=== PATIENT | male | born 1980 | race African-American/Black ===

== ENCOUNTER 2017-03-27 20:30 | Emergency (ER) | payer MEDICAID, OTHER ==
[~2017-03-27] VITALS: Ht 177.8 cm; Wt 81.6 kg
[~2017-03-27 20:30] MED LIST: ALBU-136 IH
[2017-03-27 20:53] VITALS: BP 137/76
[2017-03-27] MEDS ORDERED: HYDROcodone/APAP 7.5/325 MG 1 TAB PO ONE (21:35)
[2017-03-27 22:20] VITALS: BP 127/68
--- NOTE | 2017-03-27 22:20 | NUR ---
Patient discharged with v/s stable. Written and verbal after care instructions given and explained. Patient alert, oriented and verbalized understanding of instructions. Ambulatory with steady gait. All questions addressed prior to discharge. ID band removed. Patient advised to follow up with PMD. Rx of Gentak opthalmic pascual and [place] given. Patient educated on indication of medication including possible reaction and side effects. Opportunity to ask questions provided and answered.
== END 2017-03-27 22:20 | disposition home or self-care (01) ==
LOC: MED 20:30
CPT/HCPCS: 99283

== ENCOUNTER 2017-07-27 10:32 | Emergency (ER) | payer OTHER ==
[~2017-07-27] VITALS: Ht 177.8 cm; Wt 72.7 kg
[2017-07-27 10:52] VITALS: BP 131/79
--- NOTE | 2017-07-27 11:22 | NUR ---
Patient ambulated to bed 11. RN evaluating patient at bedside.
--- NOTE | 2017-07-27 11:27 | NUR ---
Dr. Lindsay evaluating patient at bedside.
--- NOTE | 2017-07-27 11:29 | NUR ---
APATIENT PRESENTS TO ED WITH C/O RASHES TO FEET AND HANDS . PT STATES THE RASHES APPEARED 3 DAYS AGO. PATIENT DENIES ANY ALLERGIES OR INSECT BITES. DENIES N/V/D; SKIN IS PINK/WARM/DRY; AAOX4 WITH EVEN AND STEADY GAIT; LUNGS CLEAR BL; HR EVEN AND REGULAR; PT DENIES ANY FEVER, CP, SOB, OR COUGH AT THIS TIME; PATIENT STATES PAIN OF 8/10 AT THIS TIME; VSS; PATIENT POSITIONED FOR COMFORT; HOB ELEVATED; BEDRAILS UP X2; BED DOWN. ER MD MADE AWARE OF PT STATUS.
[2017-07-27] MEDS ORDERED: predniSONE 20 MG TAB PO ONE (11:40)
[2017-07-27] MEDS ORDERED: diphenhydrAMINE 50 MG CAP PO ONE (11:40)
[2017-07-27] MEDS ORDERED: IBUPROFEN 800 MG TAB PO ONE (11:50)
[2017-07-27] MEDS ORDERED: KETOROLAC 30 MG/ML VIAL IM ONE (11:50)
--- NOTE | 2017-07-27 12:08 | NUR ---
Patient discharged with v/s stable. Written and verbal after care instructions given and explained. Patient alert, oriented and verbalized understanding of instructions. Ambulatory with steady gait. All questions addressed prior to discharge. ID band removed. Patient advised to follow up with PMD. Rx of prednisone and benadryl given. Patient educated on indication of medication including possible reaction and side effects. Opportunity to ask questions provided and answered.
[2017-07-27 12:09] VITALS: BP 131/79
== END 2017-07-27 12:08 | disposition home or self-care (01) ==
LOC: MED 10:32
DX: R21 Rash and other nonspecific skin eruption (principal); J45.909 Unspecified asthma, uncomplicated; Z88.8 Allergy status to other drugs, medicaments and biological substances; Z79.899 Other long term (current) drug therapy
CPT/HCPCS: 36415; 86592; 99283; J7512; J1885; Q0163